=== PATIENT | female | born 1990 | race Caucasian/White ===

== ENCOUNTER 2021-06-25 13:34 | Emergency (ER) | payer SELFPAY ==
[~2021-06-25] VITALS: Ht 160 cm; Wt 59.0 kg
[2021-06-25 13:42] VITALS: BP 125/82
[2021-06-25] MEDS ORDERED: KETOROLAC 30 MG/ML VIAL IM ONE (14:30)
[2021-06-25] MEDS ORDERED: ORPHENADRINE 60 MG/2 ML (NORFLEX) AMP (ED ONLY) IM ONE (14:30)
[2021-06-25] MEDS ORDERED: predniSONE 20 MG TAB PO ONE (14:30)
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
[2021-06-25] MEDS ORDERED: PRD50T PO (14:35)
== END 2021-06-25 15:02 | disposition home or self-care (01) ==
LOC: ER 13:36
DX: M25.512 Pain in left shoulder (principal); R51.9 Headache, unspecified
CPT/HCPCS: 99284